=== PATIENT | male | born 1975 | race American Indian/Alaskan Native ===

== ENCOUNTER 2024-02-12 11:41 | Emergency (ER) | payer OTHER ==
[~2024-02-12] VITALS: Ht 188 cm; Wt 103.8 kg
[2024-02-12] MEDS: fluorescein sod 1mg ophthalmic strip RIGHTEYE ONE (12:17)
[2024-02-12] MEDS: proparacaine 0.5% ophthalmic drops 15ml RIGHTEYE ONE (12:17)
[2024-02-12] MEDS ORDERED: LOSA50TA64 PO (12:40)
[2024-02-12] MEDS ORDERED: losartan 50mg tablet PO SCH (12:45)
[2024-02-12] MEDS: losartan 50mg tablet PO ONE (12:56)
[2024-02-12 13:39] VITALS: BP 150/107; PULSE 95; RESP 16; TEMP 98; O2SAT 99
== END 2024-02-12 13:15 | disposition home or self-care (01) ==
LOC: ER 11:42
DX: H54.61 Unqualified visual loss, right eye, normal vision left eye (principal); I10 Essential (primary) hypertension; Z79.899 Other long term (current) drug therapy
CPT/HCPCS: 99284

== ENCOUNTER 2025-03-01 10:06 | Emergency (ER) | payer BC ==
[~2025-03-01] VITALS: Ht 182.9 cm; Wt 100.0 kg
[~2025-03-01 10:06] MED LIST: LOSA50TA64 PO
[2025-03-01 10:17] VITALS: TEMP 97.5
[2025-03-01] MEDS ORDERED: LISI20TA28 PO (15:03)
[2025-03-01] MEDS ORDERED: METF-1203 PO (15:03)
--- NOTE | 2025-03-01 15:04 | Physician Documentation ---
History of Present Illness General Chief Complaint: Blurred Vision Stated Complaint: VISION COMPLICATIONS Time Seen by MD: 13:51 Mode of Arrival: POV History of Present Illness Initial Comments 49 y/o male otherwise healthy presents to the emergency department with a complaint of blurry vision has been waxing and waning for eight months. 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 I had he denies polyuria polydipsia polyphagia. Denies recent illness injury or infection. 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 No headaches, nausea or vomiting chest pain or shortness of breath. Medication Reconciliation Allergies: Coded Allergies: No Known Allergies (Unverified , 03/01/25) Scheduled Lisinopril (Lisinopril), 1 TAB PO DAILY Losartan Potassium (Losartan Potassium), 1 TAB PO DAILY Metformin HCl (Metformin HCl), 1 TAB PO Q12H Review of Systems All Other Systems at this time: Reviewed and Negative Eye: Reports: blurred vision Physical Exam Physical Exam Vital Signs: Temperature: 97.5, Source: Temporal, Heart Rate: 111, Respiratory Rate: 18, BP: 161/110, Pulse Oximetry: 98, Weight: 100.000 Oxygen Flow Rate: 0 General Appearance: alert, WD/WN, no apparent distress Head: normal inspection Face: normal inspection Pupils/EOM/Fundus: PERRLA Ear: auricle normal Neck: non-tender Respiratory: lungs clear, normal breath sounds Chest: no accessory muscle use Cardiovascular: normal peripheral pulses, regular rate, rhythm Gastrointestinal: normal palpation Extremities: normal range of motion Neurologic: oriented x4, 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 as tested Motor / Sensory: no motor deficit, no sensory deficit Psychiatric: normal mood/affect Skin: normal color Progress Results/Orders Results/Orders Completed Orders - JES MATOS PAC BMP (03/01/25 14:52) Vital Signs 03/01/25 03/01/25 03/01/25 03/01/25 10:17 13:21 13:28 14:53 Temp 97.5 Pulse 109 91 111 Resp 18 18 18 B/P (MAP) 202/123 180/122 (141) 161/110 (127) Pulse Ox 99 98 O2 Flow Rate 0 Laboratory Tests Test 03/01/25 14:43 03/01/25 14:59 Glucometer 287 H Sodium Level 138 Potassium Level 4.1 Chloride Level 101 Carbon Dioxide Level 28.4 Anion Gap 9 Blood Urea Nitrogen 14 Creatinine 0.72 Estimated GFR/1.73 m2 > 90 BUN/Creatinine Ratio 19.4 Glucose Level 273 H Calcium Level 9.2 Albumin 4.1 Chemistry Comments Medical Decision Making Differential Diagnosis Examination and history consistent with diabetes with associated hypertension. Basic metabolic panel reassuring for no renal insufficiency or electrolyte derangement. Blood sugars 283. We will begin metformin 500 mg one tablet b.i.d. and lisinopril 20 mg q.day. patient is a landing himself with a local clinic for follow up. Understands the importance of the 1-2 week follow up for re-evaluation and consideration of medication change in targeted therapy. Safely discharged from the emergency department all questions and concerns answered. Departure Disposition: HOME / SELF CARE / HOMELESS Impression: Primary Impression: Hypertension Qualified Codes: I10 - Essential (primary) hypertension Additional Impression: Hyperglycemia Condition: Stable Discharge Instructions: Hyperglycemia, [id number], Hypertension, Adult Additional Instructions: In the emergency department your examination was consistent with high blood pressure hand likely that of diabetes requiring management. Your screening labs were obtained. Please begin medications as directed and follow up with the primary care physician for additional management and coordinated care. Thank you for visiting the emergency department of [facility] and return in the interim as needed. Referrals: NO PRIMARY CARE PROVIDER (PCP) Prescriptions Metformin HCl (Metformin HCl) 500 Mg Tablet 1 TAB PO Q12H for 30 Days, #60 TAB Prov: JES MATOS 03/01/25 Lisinopril (Lisinopril) 20 Mg Tablet 1 TAB PO DAILY for 30 Days, #30 TAB Prov: JES MATOS 03/01/25 Education Educated: Patient Educated regarding: diagnosis, treatment Signature Scribe Signature: . Attestation: . JES MATOS Mar 01, 2025 15:04
[2025-03-01 15:20] LABS: CREATININE 0.72 MG/DL (0.60-1.10); TOTAL CARBON DIOXIDE 28.4 MMOL/L (24-32); eCRCL 138 ML/MIN; eGFR > 90 ML/MIN
[2025-03-01 16:17] VITALS: BP 168/113; PULSE 100; RESP 16; O2SAT 98
== END 2025-03-01 16:19 | disposition home or self-care (01) ==
LOC: ER 10:07
DX: I10 Essential (primary) hypertension (principal); E11.65 Type 2 diabetes mellitus with hyperglycemia; Z79.899 Other long term (current) drug therapy
CPT/HCPCS: 36415; 80048; 82948; 99283